=== PATIENT | female | born 2000 | race Two or more races ===

== ENCOUNTER 2018-05-25 22:06 | Emergency (ER) | payer MEDICAID ==
[~2018-05-25] VITALS: Ht 167.6 cm; Wt 59.9 kg
[~2018-05-25 22:06] MED LIST: FLUO10CA13 PO
[2018-05-25] MEDS ORDERED: ALBUTEROL SULFATE 2.5 MG/3 ML ONE (22:10)
[2018-05-25 22:24] LABS: BASOPHILS # (AUTO) 0.02 x10^3/uL (0-0.3); BASOPHILS % (AUTO) 0 % (0-1); EOSINOPHILS # (AUTO) 0.01 x10^3/uL (0-0.8); EOSINOPHILS % (AUTO) 0 % (1-7); LYMPHOCYTES # (AUTO) 1.24 x10^3/uL (1-6.1); LYMPHOCYTES % (AUTO) 20 % (22-44); MD NO; MEAN CORPUSCULAR HEMOGLOBIN 31.1 pg (27.0-34.8); MEAN CORPUSCULAR HGB CONC 34.1 g/dL (32.4-35.8); MEAN CORPUSCULAR VOLUME 91.2 fL (80-100); MEAN PLATELET VOLUME 8.9 fL (7.4-10.4); MONOCYTES # (AUTO) 0.63 x10^3/uL (0-1.4); MONOCYTES % (AUTO) 10 % (2-9); NEUTROPHILS # (AUTO) 4.39 x10^3/uL (1.8-8.0); NEUTROPHILS % (AUTO) 70 % (42-75); PLATELET COUNT 183 x10^3/uL (130-400)
[2018-05-25] MEDS ORDERED: ONDANSETRON 2MG/ML, 2ML ONE (22:27)
[2018-05-25] MEDS ORDERED: ALBUTEROL SULFATE 2.5 MG/3 ML NPPB ONE (22:30)
[2018-05-25] MEDS ORDERED: ONDANSETRON 2MG/ML, 2ML IVPush ONE (22:30)
[2018-05-25] MEDS ORDERED: SODIUM CHLORIDE FLUSH 10ML SYR IVF ONE (22:30)
[2018-05-25 22:32] LABS: ALBUMIN 4.1 g/dL (3.4-5.0); ANION GAP 11 mmol/L (5-15); CALCIUM 9.4 mg/dL (8.5-10.1); CHLORIDE 103 mmol/L (98-107); CREATININE 0.73 mg/dL (0.55-1.02)
[2018-05-25 23:30] VITALS: BP 130/70
== END 2018-05-25 23:58 | disposition home or self-care (01) ==
LOC: ED 23:43
DX: O26.891 Other specified pregnancy related conditions, first trimester (principal); R06.00 Dyspnea, unspecified; O21.9 Vomiting of pregnancy, unspecified; Z3A.01 Less than 8 weeks gestation of pregnancy
CPT/HCPCS: 36415; 80048; 82040; 85025; 94640; 96374; 99283; J2405; J7613

== ENCOUNTER 2018-06-12 20:44 | Emergency (ER) | payer MEDICAID ==
[~2018-06-12] VITALS: Ht 162.6 cm; Wt 54.8 kg
[2018-06-12 21:08] LABS: BASOPHILS # (AUTO) 0.13 x10^3/uL (0-0.3); BASOPHILS % (AUTO) 1 % (0-1); EOSINOPHILS # (AUTO) 0.02 x10^3/uL (0-0.8); EOSINOPHILS % (AUTO) 0 % (1-7); LYMPHOCYTES # (AUTO) 2.12 x10^3/uL (1-6.1); LYMPHOCYTES % (AUTO) 22 % (22-44); MD NO; MEAN CORPUSCULAR HGB CONC 34.5 g/dL (32.4-35.8); MEAN PLATELET VOLUME 8.1 fL (7.4-10.4); MONOCYTES # (AUTO) 0.68 x10^3/uL (0-1.4); MONOCYTES % (AUTO) 7 % (2-9); NEUTROPHILS # (AUTO) 6.92 x10^3/uL (1.8-8.0); NEUTROPHILS % (AUTO) 70 % (42-75); PLATELET COUNT 249 x10^3/uL (130-400); RED CELL DISTRIBUTION WIDTH 13.9 % (9.6-15.2)
[2018-06-12 21:21] LABS: ALBUMIN 3.5 g/dL (3.4-5.0); ANION GAP 8 mmol/L (5-15); CALCIUM 8.8 mg/dL (8.5-10.1); CHLORIDE 105 mmol/L (98-107); CREATININE 0.58 mg/dL (0.55-1.02)
[2018-06-12] MEDS ORDERED: ONDANSETRON ODT 4 MG ONE (21:25)
--- NOTE | 2018-06-12 21:29 | NUR ---
UA OBTAINED AND WALKED TO LAB.
[2018-06-12] MEDS ORDERED: ONDANSETRON ODT 4 MG PO ONE (21:30)
[2018-06-12 22:00] LABS: MICROSCOPIC INDICATED
[2018-06-12 22:09] LABS: CULTURE INDICATED? YES
--- NOTE | 2018-06-12 22:21 | NUR ---
PO CHALLENGE INITIATED AT THIS TIME.
[2018-06-12 22:40] VITALS: BP 119/74
== END 2018-06-12 22:48 | disposition home or self-care (01) ==
LOC: ED 22:05
DX: O21.9 Vomiting of pregnancy, unspecified (principal); R10.9 Unspecified abdominal pain; Z3A.08 8 weeks gestation of pregnancy
CPT/HCPCS: 36415; 80048; 81001; 82040; 85025; 87086; 99283; Q0162

== ENCOUNTER 2018-07-03 19:04 | Emergency (ER) | payer MEDICAID ==
[~2018-07-03] VITALS: Ht 162.6 cm; Wt 56.0 kg
[2018-07-03] MEDS ORDERED: MAALOX/HYOSCYAMINE/LIDOCAINE 45 ML BTL PO ONE (19:30)
[2018-07-03 19:31] LABS: BASOPHILS # (AUTO) 0.04 x10^3/uL (0-0.3); BASOPHILS % (AUTO) 1 % (0-1); EOSINOPHILS # (AUTO) 0.01 x10^3/uL (0-0.8); EOSINOPHILS % (AUTO) 0 % (1-7); LYMPHOCYTES # (AUTO) 2.14 x10^3/uL (1-6.1); LYMPHOCYTES % (AUTO) 25 % (22-44); MD NO; MEAN CORPUSCULAR HEMOGLOBIN 30.9 pg (27.0-34.8); MEAN CORPUSCULAR HGB CONC 34.1 g/dL (32.4-35.8); MEAN CORPUSCULAR VOLUME 90.8 fL (80-100); MONOCYTES # (AUTO) 0.58 x10^3/uL (0-1.4); MONOCYTES % (AUTO) 7 % (2-9); NEUTROPHILS # (AUTO) 5.82 x10^3/uL (1.8-8.0); NEUTROPHILS % (AUTO) 68 % (42-75); PLATELET COUNT 245 x10^3/uL (130-400); RED BLOOD COUNT 4.18 x10^6/uL (3.82-5.3); RED CELL DISTRIBUTION WIDTH 13.6 % (9.6-15.2)
[2018-07-03 19:39] LABS: ALANINE AMINOTRANSFERASE 21 U/L (12-78); ALBUMIN 3.3 g/dL (3.4-5.0); ANION GAP 8 mmol/L (5-15); CALCIUM 8.6 mg/dL (8.5-10.1); CHLORIDE 104 mmol/L (98-107); CREATININE 0.45 mg/dL (0.55-1.02)
[2018-07-03] MEDS ORDERED: MAALOX/HYOSCYAMINE/LIDOCAINE 45 ML BTL ONE (19:39)
[2018-07-03] MEDS ORDERED: ONDANSETRON ODT 4 MG ONE (19:40)
[2018-07-03 19:42] LABS: ALKALINE PHOSPHATASE 62 U/L (45-117); BILIRUBIN,TOTAL 0.3 mg/dL (0.2-1.0); TOTAL PROTEIN 7.2 g/dL (6.4-8.2)
--- NOTE | 2018-07-03 19:42 | NUR ---
PT MEDICATED FOR NAUSEA PRIOR TO GI COCKTAIL. WILL REASSESS.
[2018-07-03 19:55] LABS: MICROSCOPIC INDICATED
[2018-07-03 19:56] LABS: CULTURE INDICATED? NO
[2018-07-03] MEDS ORDERED: ONDANSETRON ODT 4 MG PO ONE (20:00)
--- NOTE | 2018-07-03 20:51 | NUR ---
REPORT FROM SAMRA IQBAL, ASSUME CARE OF PT AT THIS TIME. PT IN US.
[2018-07-03 21:03] VITALS: BP 115/64
--- NOTE | 2018-07-03 21:04 | NUR ---
PT BACK FROM US. PT DENIES PAIN OR NAUSEA AT THIS TIME. VSS/UPDATED IN COMPUTER.
== END 2018-07-03 21:39 | disposition home or self-care (01) ==
LOC: ED 19:22
DX: O21.9 Vomiting of pregnancy, unspecified (principal); R10.32 Left lower quadrant pain; Z3A.12 12 weeks gestation of pregnancy
CPT/HCPCS: 36415; 76801; 80053; 81001; 85025; 99284; Q0162

== ENCOUNTER 2018-09-04 18:08 | Outpatient (CLI) | payer MEDICAID ==
[~2018-09-04] VITALS: Ht 165.1 cm; Wt 61.3 kg
[2018-09-04 18:26] VITALS: BP 107/59
[2018-09-04 18:50] LABS: MICROSCOPIC INDICATED
[2018-09-04 19:01] LABS: CULTURE INDICATED? YES
[2018-09-04 19:03] LABS: AMPHETAMINE SCREEN, URINE Negative (Negative); BARBITURATE SCREEN, URINE Negative (Negative); BENZODIAZEPINE SCREEN, URINE Negative (Negative); CANNABINOID SCREEN, URINE Negative (Negative); COCAINE SCREEN, URINE Negative (Negative); METHADONE SCREEN, URINE Negative (Negative); OPIATE SCREEN, URINE Negative (Negative)
== END 2018-09-04 20:00 | disposition home or self-care (01) ==
LOC: LDOP 18:08
PROVIDERS: ATTEND Obstetrics & Gynecology
DX: O26.892 Other specified pregnancy related conditions, second trimester (principal); Z3A.21 21 weeks gestation of pregnancy; R10.9 Unspecified abdominal pain
CPT/HCPCS: 59025; 80307; 81001; 87086; 99201; G0463